=== PATIENT | female | born 1985 | race Caucasian/White ===

== ENCOUNTER 2016-08-18 01:54 | Inpatient (IN) | payer MEDICAID, OTHER ==
[2016-08-18] VITALS (93 sets, daily range): BP systolic 67–118; BP diastolic 39–78; PULSE 77–118; RESP 16–18; TEMP 97.4–99.5
[~2016-08-18] VITALS: Ht 162.6 cm; Wt 63.5 kg
[2016-08-18] MEDS ORDERED: LACTATED RINGER'S 1000 ML INJ 1,000 ML IV PRN (02:12)
[2016-08-18] MEDS ORDERED: LIDOCAINE HCL 1% 50 ML VIAL INFIL PRN (02:15)
[2016-08-18] MEDS ORDERED: SODIUM CHLORID 0.9% 500 ML INJ 500 ML IV PRN (02:15)
[2016-08-18] MEDS ORDERED: CITRIC ACID-SODIUM CITRATE LIQ 30 ML UDC PO SCH (02:15)
[2016-08-18] MEDS ORDERED: MINERAL OIL 10 ML VIAL TOPICAL PRN (02:15)
[2016-08-18] MEDS ORDERED: LIDOCAINE HCL 1% 50 ML VIAL I-DERMAL PRN (02:15)
[2016-08-18] MEDS ORDERED: OXYTOCIN 30 UNITS-500ML PREMIX 500 ML IV ONE (02:15)
--- NOTE | 2016-08-18 02:23 | HHI.HP ---
HPI Chief Complaint Leakage of fluid Date Seen: August 18, 2016 Travel History International Travel<30 Days: No Contact w/Intl Traveler<30Days: No Known Affected Area: No History of Present Illness HPI This patient is 31-year-old white female PCS 40 weeks 4 days presents planning a leakage of fluid per vagina. Denies bleeding or significant pain. Tracing is reactive and she is james every 2-[address] Adams Mann for care. Patient had a previous but prior to that a vaginal delivery and she would like to this baby Para: 2 : 3 History Obstetric History Obstetric History One vaginal delivery and a for breech and now this Past Surgical History Narrative Surgical for breech Social History Alcohol Use: No Tobacco Use: No Substance Abuse: No Allergies-Medications (Allergen,Severity, Reaction): Coded Allergies: No Known Allergies (Unverified , 08/18/16) Review of Systems General / Constitutional: No: Fever, Weight Gain, Chills, Other Eyes: No: Diploplia, Blurred Vision, Visual changes, Pain, Photophobia HENT: No: Headaches, Vertigo, Lightheadedness Cardiovascular: No: Irregular Rhythm, Chest Pain or Discomfort, Palpitations, Tachycardia, Syncope, Varicosities, Edema, Cyanosis Respiratory: No: Cough, Short of Breath, Other Gastrointestinal: No: Nausea, Vomiting, Diarrhea Genitourinary: No: Decreased Urinary Output, Oliguria Musculoskeletal: No: Limited ROM, Weakness, Cramping, Edema, Pain Skin: No Rash, No Itching, No Dryness, No Lumps, No Change in Pigmentation, No Change in Nails, No Alopecia, No Lesions Neurologic: No: Weakness, Dizziness, Syncope, Focal Abnormalities, Coordination Problem, Headache, Slurred Speech, Seizures Psychiatric: No: Depression, Suicidal Ideations, Homicidal Ideation Endocrine: No: Heat Intolerance, Cold Intolerance, Polydipsia, Polyuria, Other Physical Exam Narrative GENERAL: Well-nourished, well-developed patient. SKIN: Warm and dry. HEAD: Normocephalic and atraumatic. EYES: No scleral icterus. No injection or drainage. ENT: No nasal drainage noted. Mucous membranes pink. Airway patent. NECK: Supple, trachea midline. No JVD. CARDIOVASCULAR: Regular rate and rhythm without murmurs, gallops, or rubs. RESPIRATORY: Breath sounds equal bilaterally. No accessory muscle use. BREASTS: Bilateral exam showed no masses , no retractions, no nipple discharge. ABDOMEN/GI: Abdomen soft, non-tender, bowel sounds present, no rebound, no guarding Gravid to [38-] weeks size Fundal Height: [38-] GENITOURINARY: External Genitalia: intact and normal in appearance BUS glands: [-] Cervix: [-] Dilatation: [1-] Effacement: [70-] Station: [-2] Presentation: [-vtx] Membranes: ruptured] amnio sure negative however gross ruptured membranes noted on exam with meconium-stained fluid Uterine Contractions: [q 2 min-] FHT's: Category: [1-] Baseline: [-144] Reactive: [yes-] Variability: [-mod] Decels: [-0] EXTREMITIES: No cyanosis or edema. BACK: Nontender without obvious deformity. No CVA tenderness. NEUROLOGICAL: Awake and alert. Motor and sensory grossly within normal limits. Five out of 5 muscle strength in all muscle groups. Normal speech. Data Data Orders Admit To Inpatient (08/18/16 ) Vital Signs (Adult) .Per protocol (08/18/16 02:12) Heart (08/18/16 02:12) Amnioinfusion (08/18/16 02:12) Urinary Catheter Management .ONCE (08/18/16 02:12) Diet Npo (08/18/16 Breakfast) Lactated Ringer's 1000 Ml Inj (Lr 1000 M (08/18/16 02:12) Lactated Ringer's 1000 Ml Inj (Lr 1000 M (08/18/16 02:12) Sodium Chlorid 0.9% 500 Ml Inj (Ns 500 M (08/18/16 02:15) Sodium Chlor 0.9% 1000 Ml Inj (Ns 1000 M (08/18/16 02:32) Lidocaine 1% Inj (50 Ml) (Xylocaine 1% I (08/18/16 02:15) Citric Acid-Sodium Citrate Liq (Bicitra (08/18/16 02:15) Fentanyl Inj (Fentanyl Inj) (08/18/16 02:15) Fentanyl Inj (Fentanyl Inj) (08/18/16 02:15) Complete Blood Count With Diff (08/18/16 02:12) Hold Clot (08/18/16 02:12) Abo/Rh Blood Type (08/18/16 02:12) Urinalysis - C+S If Indicated (08/18/16 02:12) Type And Screen (08/18/16 02:12) Resp Oxygen Non Rebreathe Mask (08/18/16 ) ^ Epidural / Intrathecal Infus (08/18/16 02:12) Oxytocin 30 Units-500ml Premix (Pitocin (08/18/16 02:15) Lidocaine 1% Inj (50 Ml) (Xylocaine 1% I (08/18/16 02:15) Light Mineral Oil (Muri-Lube Oil) (08/18/16 02:15) Labs Amnio sure negative but the gross ruptured membranes noted with meconium Assessment/Plan Assessment and Plan This patient is 31-year-old white female 40 weeks gestation previous C- section who presents with complaint of leaking fluid. On exam she has gross rupture the membranes with meconium-stained fluid. However the amnio sure was negative but a gross rupture is noted and she is james every 2-3 minutes, cervix is 1-2/70 and -2 and vertex. The patient is previous for breech and wants to this baby she delivered vaginally her first child. She understands that is considered safe procedure but with the uterine rupture rate less than 1% however she understands the risk and benefits of that trial of labor. sHe will sign the appropriate consents for and will call Dr. Mann to let him know his patient's here Francisco Javier Rouse II, MD August 18, 2016 02:23
[2016-08-18] MEDS ORDERED: SODIUM CHLOR 0.9% 1000 ML INJ 1,000 ML IV PRN (02:32)
[2016-08-18] MEDS: LACTATED RINGER'S 1000 ML INJ 1,000 ML IV SCH ×3 (02:56→11:35)
[2016-08-18] MEDS ORDERED: PRENCAP10 PO (03:11)
[2016-08-18 03:26] LABS: AUTOMATED NEUTROPHIL # 8.3 TH/MM3 (1.8-7.7); BASOPHIL % 0.3 % (0.0-2.0); EOSINOPHIL # 0.1 TH/MM3 (0-0.4); EOSINOPHIL % 0.9 % (0.0-4.0); HEMATOCRIT 29.5 % (35.0-46.0); HEMO FLAGS DIFF FINAL; LYMPH % 17.3 % (9.0-44.0); LYMPHOCYTE # 1.9 TH/MM3 (1.0-4.8); MEAN CELL VOLUME 79.5 FL (80.0-100.0); MEAN CORPUSCULAR HEMOGLOBIN 26.6 PG (27.0-34.0); MEAN CORPUSCULAR HGB CONC 33.4 % (32.0-36.0); MONO % 5.6 % (0.0-8.0); NEUT % 75.9 % (16.0-70.0); PLATELET COUNT 188 TH/MM3 (150-450); RED CELL DISTRIBUTION WIDTH 14.9 % (11.6-17.2)
[2016-08-18] MEDS ORDERED: ACETAMINOPHEN 325 MG TAB PO PRN (03:30)
[2016-08-18 03:32] LABS: BACTERIA, URINE RARE /hpf; BLOOD, URINE NEG (NEG); GLUCOSE,URINE NEG (NEG); KETONE, URINE NEG (NEG); MUCUS URINE FEW /lpf (OCC); NITRITE,URINE NEG (NEG); SQUAMOUS EPITHELIAL CELL URINE 1 /hpf (0-5); URINE COLOR LIGHT-YELLOW (YELLW/STRAW)
[2016-08-18 03:33] LABS: COMMENT (UR) CATH-CULTURE IND; CULTURE IF INDICATED CATH CULTURE IND
[2016-08-18] MEDS ORDERED: OXYTOCIN 30 UNITS/NS 500ML PREMIX IV SCH (08:15)
[2016-08-18] MEDS ORDERED: fentaNYL 2MCG-BUPIV 0.125% INJ 100 ML ONE (08:25)
[2016-08-18] MEDS ORDERED: ePHEDrine/NS 25 MG/5 ML SYR ONE (08:25)
[2016-08-18] MEDS ORDERED: DO NOT ADMINISTER ANTICOAGULANTS PRN (10:30)
[2016-08-18] MEDS ORDERED: fentaNYL 2MCG-BUPIV 0.125% 100 ML EPIDURAL SCH (10:30)
[2016-08-18] MEDS ORDERED: NO SYSTEM NARCOTICS PRN (10:30)
[2016-08-18] MEDS ORDERED: ePHEDrine/NS 25 MG/5 ML SYR IV PRN (10:30)
--- NOTE | 2016-08-18 13:09 | PD.OB.DELI ---
Delivery Date: August 18, 2016 Anesthesia: None Episiotomy: None Vaginal Delivery: Normal, Spontaneous Presentation: Occiput anterior Nuchal Cord: None Delayed cord clamping (45 sec): Yes : Female, Single One Minute : 8 Five Minute : 9 Weight: 7# 7 oz Placenta: Spontaneous delivery, Intact, 3 vessel cord Laceration: 2 deg Repair: Chromic running, Vicryl Adams Watt MD August 18, 2016 13:08
[2016-08-18] MEDS ORDERED: ZOLPIDEM TARTRATE 5 MG TAB PO PRN (13:15)
[2016-08-18] MEDS ORDERED: ONDANSETRON ODT 4 MG TAB PO PRN (13:15)
[2016-08-18] MEDS ORDERED: BENZOCAINE 20% TOPICAL SPRAY 60 ML CAN TOPICAL PRN (13:15)
[2016-08-18] MEDS ORDERED: ALUMINUM/MAGNESIUM/SIMETH 30 ML CUP PO PRN (13:15)
[2016-08-18] MEDS ORDERED: DOCUSATE SODIUM 50 MG/SENNA 8.6 MG TAB PO PRN (13:15)
[2016-08-18] MEDS ORDERED: WITCH HAZEL 50%/GLYCERIN 12.5% 40 PAD JAR TOPICAL PRN (13:15)
[2016-08-18] MEDS ORDERED: oxyCODONE/ACETAMINOPHEN 5 MG/325 MG TAB PO PRN ×2 (13:15)
[2016-08-18] MEDS ORDERED: SODIUM CHLORIDE 0.9% FLUSH 10 ML FLUSH IV FLUSH PRN (13:15)
[2016-08-18] MEDS: ACETAMINOPHEN 325 MG TAB PO PRN (15:38)
[2016-08-18] MEDS ORDERED: MEASLES, MUMPS, RUBELLA VACCINE 0.5 ML VIAL SQ ONE (16:00)
[2016-08-18] MEDS ORDERED: DIPHTH/TETANUS/ACEL PERTUSSIS (BOOSTER) 0.5 ML VIAL/PFS IM ONE (16:00)
[2016-08-18] MEDS ORDERED: SODIUM CHLORIDE 0.9% FLUSH 10 ML FLUSH IV FLUSH SCH (21:00)
[2016-08-18] MEDS: IBUPROFEN 600 MG TAB PO PRN (21:07)
[2016-08-19] MEDS: ACETAMINOPHEN 325 MG TAB PO PRN ×4 (04:33→23:17)
[2016-08-19] MEDS: IBUPROFEN 600 MG TAB PO PRN ×4 (04:33→23:17)
[2016-08-19 08:01] VITALS: BP 102/60; PULSE 72; RESP 16; TEMP 98
[2016-08-19] MEDS ORDERED: OXYC1TAB63 PO (09:59)
--- NOTE | 2016-08-19 10:00 | HHI.DCPOC ---
Discharge Care Plan Diagnosis: (1) Spontaneous vaginal delivery Report Symptoms to Your Doctor -Temperate above 100.5 degrees -Redness, of incision or excessive or foul smelling drainage -Unusual pain or calf pain -Increased vaginal bleeding -Painful or difficulty urinating -Feelings of extreme sadness or anxiety after 2 weeks Goals to Promote Your Health * To prevent worsening of your condition and complications * To maintain your health at the optimal level Directions to Meet Your Goals Take your medications as prescribed Follow your dietary instruction Follow activity as directed Ensure plenty of rest for recovery Drink fluids for hydration Keep your appointments as scheduled Take your immunizations and boosters as scheduled If your symptoms worsen call your PCP, if no PCP go to Urgent Care Center or Emergency Room Smoking is Dangerous to Your Health. Avoid second hand smoke Call the 24-hour crisis hotline for domestic abuse at Adams Barrera MD August 19, 2016 10:00
--- NOTE | 2016-08-19 10:01 | HHI.DS ---
Admission Date August 18, 2016 at 02:25 Discharge Date: August 19, 2016 Admitting Diagnosis Diagnosis: (1) Spontaneous vaginal delivery Delivery Date: August 18, 2016 Vaginal Delivery: Normal, Spontaneous Infant: Female, Single Brief History This patient is 31-year-old white female PCS 40 weeks 4 days presents planning a leakage of fluid per vagina. Denies bleeding or significant pain. Tracing is reactive and she is james every 2-[address] Adams Mann for care. Patient had a previous but prior to that a vaginal delivery and she would like to this baby Hospital Course doing well Pt Condition on Discharge: Good Discharge Disposition: Discharge Home Discharge Instructions Activities You Can Perform: Regular-No Restrictions Follow up Referrals: [facility] [facility] - 2 Weeks [facility] with Adams Barrera MD New Medications: Oxycodone-Acetaminophen (Oxycodone-Acetaminophen) 5-325 mg Tab 1 TAB PO Q4H PRN PAIN SCALE 3 TO 5 #20 TAB Continued Medications: Vit W/ Ferrous Fumara ( Multi +Dha 27-0.8-228 mg) 1 Cap Cap 1 TAB PO DAILY Adams Barrera MD August 19, 2016 10:01
--- NOTE | 2016-08-19 10:03 | HHI.DS ---
Admission Date August 18, 2016 at 02:25 Discharge Date: August 19, 2016 Admitting Diagnosis Diagnosis: (1) Spontaneous vaginal delivery Diagnosis: Principal Delivery Date: August 18, 2016 Vaginal Delivery: Normal, Spontaneous : Female, Single Brief History This patient is 31-year-old white female PCS 40 weeks 4 days presents planning a leakage of fluid per vagina. Denies bleeding or significant pain. Tracing is reactive and she is james every 2-[address] Adams Mann for care. Patient had a previous but prior to that a vaginal delivery and she would like to this baby Hospital Course induction of labor with Pt Condition on Discharge: Good Discharge Disposition: Discharge Home Discharge Instructions Activities You Can Perform: Regular-No Restrictions Activities to Avoid: Driving for 24 hrs Follow up Referrals: [facility] [employer] - 2 Weeks @ [facility] with Adams Barrera MD New Medications: Oxycodone-Acetaminophen (Oxycodone-Acetaminophen) 5-325 mg Tab 1 TAB PO Q4H PRN PAIN SCALE 3 TO 5 #20 TAB Continued Medications: Vit W/ Ferrous Fumara ( Multi +Dha 27-0.8-228 mg) 1 Cap Cap 1 TAB PO DAILY Adams Barrera MD August 19, 2016 10:03
[2016-08-19 20:24] VITALS: BP 96/59; PULSE 85; RESP 14; TEMP 98.3
[2016-08-20] MEDS: IBUPROFEN 600 MG TAB PO PRN ×2 (05:08→11:18)
[2016-08-20] MEDS: ACETAMINOPHEN 325 MG TAB PO PRN ×2 (05:09→11:18)
--- NOTE | 2016-08-20 07:20 | HHI.OB ---
Subjective Post Day: 2 Remarks doing well stayed for 1 day more for DC Objective Vitals/I&O Vital Signs Date Time Temp Pulse Resp B/P Pulse Ox O2 Delivery O2 Flow Rate FiO2 08/19/16 20:24 98.3 85 14 96/59 08/19/16 08:01 98.0 72 16 102/60 Objective Remarks GENERAL: Well-nourished, well-developed patient. . ABDOMEN/GI: Abdomen soft, non-tender. Fundus: Firm, non-tender at umbilicus. GENITOURINARY: Light to moderate bleeding. EXTREMITIES: No cyanosis or edema, non-tender, without signs of DVT. Medications and IVs Current Medications Medications (Trade) Dose Ordered Sig/Danilo Route Start Time Stop Time Status Last Admin (NS Flush) 2 ml BID IV FLUSH 08/18/16 21:00 (NS Flush) 2 ml UNSCH PRN IV FLUSH 08/18/16 13:15 (Tylenol) 650 mg Q4H PRN PO 08/18/16 13:15 08/20/16 05:09 (Motrin) 600 mg Q6H PRN PO 08/18/16 13:15 08/20/16 05:08 (Percocet 5-325 Mg) 1 tab Q4H PRN PO 08/18/16 13:15 (Percocet 5-325 Mg) 2 tab Q4H PRN PO 08/18/16 13:15 (Americaine 20% Top Spr) 1 spray Q4H PRN TOPICAL 08/18/16 13:15 08/18/16 15:38 (Tucks Pads) 1 applic QID PRN TOPICAL 08/18/16 13:15 08/18/16 15:38 (Maria Esther-Colace) 2 tab Q12H PRN PO 08/18/16 13:15 (Ambien) 5 mg HS PRN PO 08/18/16 13:15 (Mag-Al Plus Susp Liq) 15 ml Q8H PRN PO 08/18/16 13:15 (Zofran Odt) 4 mg Q6H PRN PO 08/18/16 13:15 08/18/16 14:06 Assessment/Plan Assessment and Plan DC home doing well Adams Barrera MD August 20, 2016 07:20
== END 2016-08-20 13:17 | disposition home or self-care (01) | DRG 775 ==
LOC: HOBED 01:54 → H2EB 02:25 → H1EA 15:19
PROVIDERS: ADMIT Obstetrics & Gynecology; ATTEND Obstetrics & Gynecology
PROC: 10E0XZZ Delivery of Products of Conception, External Approach (ICD-10-PCS; principal; 2016-08-18)
PROC: 0KQM0ZZ Repair Perineum Muscle, Open Approach (ICD-10-PCS; 2016-08-18)
DX: O77.0 Labor and delivery complicated by meconium in amniotic fluid (principal); O34.219 Maternal care for unspecified type scar from previous cesarean delivery; O70.1 Second degree perineal laceration during delivery; Z3A.40 40 weeks gestation of pregnancy; Z37.0 Single live birth
CPT/HCPCS: 81001; 84112; 85025; 86850; 86900; 86901; 87086; 90715; 99285; J2590; J7120